=== PATIENT | male | born 1980 | race Two or more races ===

== ENCOUNTER 2019-07-07 17:13 | Emergency (ER) | payer OTHER ==
[2019-07-07 17:28] VITALS: BP 150/96
--- NOTE | 2019-07-07 17:50 | UC ---
Knee Pain HPI - HPI Summary HPI Summary: 39 yo male presents with LEFT knee pain. He tells me that he was walking on gravel around 1630 this evening and twisted his knee and then fell on it. Had immediate pain and has had pain in the knee since. He is able to weight bear and ambulate, but pain is worse with weight bearing. Has not taken anything OTC for his symptoms. Denies numbness or tingling. - History of Current Complaint Chief Complaint: UCLowerExtremity Stated Complaint: LEFT KNEE PAIN Time Seen by Provider: 07/07/19 17:49 Hx Obtained From: Patient Onset/Duration: Sudden Onset Severity Initially: Mild Severity Currently: Mild Pain Intensity: 3 Pain Scale Used: 0-10 Numeric - Allergies/Home Medications Allergies/Adverse Reactions: Allergies Allergy/AdvReac Type Severity Reaction Status Date / Time No Known Allergies Allergy Verified 07/07/19 17:28 Home Medications: Home Medications NK [No Home Medications Reported] 07/07/19 [History Confirmed 07/07/19] PMH/Surg Hx/FS Hx/Imm Hx - Additional Past Medical History Additional PMH: None - Surgical History Surgical History: Yes Surgery Procedure, Year, and Place: eye - Family History Known Family History: Positive: Non-Contributory - Social History Occupation: Employed Full-time Lives: With Family Alcohol Use: Occasionally Substance Use Type: None Smoking Status (MU): Former Smoker Review of Systems All Other Systems Reviewed And Are Negative: No Constitutional: Positive: Negative Skin: Positive: Negative Respiratory: Positive: Negative Cardiovascular: Positive: Negative Neurovascular: Positive: Negative Musculoskeletal: Positive: Other: - Left knee pain Neurological: Positive: Negative Psychological: Positive: Negative Physical Exam - Summary Physical Exam Summary: GENERAL: NAD. WDWN. No pain distress. SKIN: No rashes, sores, lesions, or open wounds. CHEST: No accessory muscle use. Breathing comfortably and in no distress. CV: Pulses intact popliteal, PT, and DP. Cap refill <2seconds MSK: LEFT KNEE: Mild TTP about inferior lateral aspect of knee joint. FROM, but pain with full extension. Strength 5/5. No patella apprehension. Negative Delilah, A/P drawer, Gale, and varus/valgus stress. NEURO: Alert. Sensations intact and symmetric B/L LEs PSYCH: Age appropriate behavior. Triage Information Reviewed: Yes Vital Signs: Initial Vital Signs Temp 98.6 F 07/07/19 17:25 Pulse 121 07/07/19 17:25 Resp 18 07/07/19 17:25 BP 150/96 07/07/19 17:25 Pulse Ox 96 07/07/19 17:25 Vital Signs Reviewed: Yes Diagnostics - Radiology Knee XR Radiology Interpretation Completed By: Radiologist Summary of Radiographic Findings: REPORT AND IMPRESSION: #. Negative for joint effusion, fracture, or malalignment. #. Preserved joint spaces. #. Incidental small bone island at the medial femoral condyle without concern. #. Mild anterior soft tissue swelling. Knee Pain Course/Dx - Course Course Of Treatment: Xr as above. Discussed results with pt. Suspect knee contusion/sprain. Advised to RICE. He was placed in an NUVIA wrap and provided with crutches. F/u with Ortho if symptoms do not improve - Differential Dx/Diagnosis Provider Diagnosis: Knee pain Discharge ED - Sign-Out/Discharge Documenting (check all that apply): Patient Departure All imaging exams completed and their final reports reviewed: Yes - Discharge Plan Condition: Stable Disposition: HOME Patient Education Materials: Knee Pain (ED) Referrals: No Primary Care Phys,NOPCP [Primary Care Provider] - April Weber MD [Medical Doctor] - If Needed Additional Instructions: If you develop a fever, shortness of breath, chest pain, new or worsening symptoms - please call your PCP or go to the ED immediately. Your blood pressure was high at todays visit. Please see your primary provider within 4 weeks for recheck and re-evaluation. 1) Rest, Ice, and elevate your knee intermittently throughout the day to reduce pain and swelling 2) May take ibuprofen as directed for discomfort 3) Use the crutches and NUVIA wrap as needed for comfort 4) If your symptoms do not improve within 1 week - please call Orthopedics at the number below to schedule an appointment for further evaluation - Billing Disposition and Condition Condition: STABLE Disposition: Home
== END 2019-07-07 18:25 | disposition home or self-care (01) ==
LOC: UCEAST 17:13
DX: M25.562 Pain in left knee (principal); Z87.891 Personal history of nicotine dependence
CPT/HCPCS: 99203; G0463

== ENCOUNTER 2021-12-19 11:53 | Observation (INO) ==
[2021-12-19] MEDS ORDERED: LORazepam 2 mg VIAL 1 ml IV PUSH ONE (12:33)
[2021-12-19] MEDS ORDERED: Lorazepam PYXIS KEY PRN (12:33)
[2021-12-19 12:42] LABS: ABS Basophils 0.1 10^3/ul (0-0.2); ABS Eosinophils 0.1 10^3/ul (0-0.6); ABS Lymphocytes 1.4 10^3/ul (1.0-4.8); ABS Monocytes 0.7 10^3/ul (0-0.8); ABS Neutrophils 7.7 10^3/ul (1.5-7.7); Eosinophil % 0.5 %; Hematocrit 48 % (42-52); Hemoglobin 17.2 g/dL (14.0-18.0); Lymphocyte % 14.6 %; Mean Corpuscular HGB Conc 36 g/dL (31-36); Mean Corpuscular Hemoglobin 35 pg (27-31); Mean Corpuscular Volume 97 fL (80-94); Mean Platelet Volume 7.7 fL (7.4-10.4); Nucleated Red Blood Cells % 0.2; Platelet Count 237 10^3/uL (150-450); Red Blood Count 4.98 10^6 /uL (4.18-5.48); Red Cell Distribution Width 14 % (10-15); White Blood Count 9.9 10^3/uL (3.5-10.8)
[2021-12-19 13:18] LABS: Albumin 4.5 g/dL (3.2-5.2); Albumin/Globulin Ratio 1.6 (1-3); Calcium 9.3 mg/dL (8.6-10.3); Globulin 2.9 g/dL (2-4); Potassium 4.3 mmol/L (3.5-5.0); Total Bilirubin 1.3 mg/dL (0.2-1.0); Total Protein 7.4 g/dL (6.4-8.9); eGFR CKD-EPI 118.3 (>60)
[2021-12-19] MEDS ORDERED: Lactated Ringers 1000 ml BAG 1,000 ML IV ONE (13:23)
[2021-12-19] MEDS ORDERED: NS 0.9% 1000 ml BAG 1,000 ML IV SCH (15:30)
[2021-12-19 15:42] LABS: Urine Bacteria Absent (Absent); Urine Red Blood Cell Trace(0-2/hpf) (Absent); Urine White Blood Cell Trace(0-5/hpf) (Absent)
[2021-12-19] MEDS ORDERED: Enoxaparin 40 MG/0.4 ML SYR SUBCUT SCH (16:00)
[2021-12-19] MEDS: Multivitamins/Minerals TAB PO SCH (16:33)
[2021-12-19 17:19] LABS: Urine Appearance Cloudy; Urine Bilirubin Negative (Negative); Urine Blood Negative (Negative); Urine Color Amber; Urine Glucose Negative (Negative); Urine Ketones Negative (Negative); Urine Nitrite Negative (Negative); Urine Protein 1+(30 mg/dL) (Negative); Urine Specific Gravity 1.028 (1.002-1.030); Urine Urobilinogen Negative (Negative)
[2021-12-20] MEDS: Multivitamins/Minerals TAB PO SCH (09:01)
[2021-12-20] MEDS ORDERED: Thiamine 100 MG/ML 2 ml VIAL 250 MG in NS 0.9% 100 ml BAG 100 ML IV ONE (10:00)
[2021-12-20 10:05] LABS: ALT 84 U/L (7-52); Albumin 3.9 g/dL (3.2-5.2); Albumin/Globulin Ratio 1.5 (1-3); Alkaline Phosphatase 43 U/L (35-149); Blood Urea Nitrogen 12 mg/dL (6-24); CO2 Carbon Dioxide 26 mmol/L (22-32); Calcium 8.6 mg/dL (8.6-10.3); Chloride 98 mmol/L (101-111); Globulin 2.6 g/dL (2-4); Glucose 138 mg/dL (70-100); Sodium 133 mmol/L (135-145); Total Protein 6.5 g/dL (6.4-8.9); eGFR CKD-EPI 118.3 (>60)
[2021-12-20 10:06] LABS: Anion Gap 9 mmol/L (2-11)
[2021-12-20 11:21] LABS: Potassium Redraw 3.6 mmol/L (3.5-5.0)
[2021-12-20 15:42] VITALS: BP 152/103
== END 2021-12-20 17:00 | disposition home or self-care (01) ==
LOC: EDHOLD 11:53 → ED 11:53 → SUATTDRO 14:48 → EDHOLD 17:59 → MEDTELE 18:16
PROVIDERS: ADMIT Internal Medicine; ATTEND Pediatrics